=== PATIENT | female | born 1960 | race Caucasian/White ===

== ENCOUNTER 2021-02-15 13:31 | Inpatient (IN) | payer MEDICAID ==
[~2021-02-15] VITALS: Ht 157.5 cm; Wt 54.9 kg
[2021-02-17] MEDS ORDERED: LEXAPRO20 MG PO (11:23)
[2021-02-17] MEDS ORDERED: NORVASC5 MG PO (11:23)
[2021-02-17] MEDS ORDERED: PEPCID40 MG PO (11:24)
[2021-02-17] MEDS ORDERED: KLOR-CON 1010 MEQ PO (11:24)
[2021-02-17] MEDS ORDERED: ONDANSETRON ODT8 MG PO (11:25)
[2021-02-18] VITALS (9 sets, daily range): BP systolic 105–172; BP diastolic 53–84; BMI 19.6; BMI 21.8
[2021-02-18 08:23] LABS: ANION GAP 11.4 mmol/L (8-16); CALCIUM 9.6 mg/dL (8.5-10.1); CARBON DIOXIDE 24.7 mmol/L (21.0-32.0); POTASSIUM - SERUM 4.1 mmol/L (3.5-5.1)
[2021-02-18 08:32] LABS: APTT 25.7 SECONDS (22.8-39.4); INR 1.08 (0.85-1.17)
[2021-02-18 08:35] LABS: BASOPHILS 0.4 % (0-2); EOSINOPHILS 5.3 % (0-7); HEMATOCRIT 31.2 % (36.0-48.0); HEMOGLOBIN 10.5 g/dL (12-16); IMMATURE GRANULOCYTES 0.1 % (0-5); LYMPHOCYTE ABS# 0.51 10x3/uL (1.18-3.74); LYMPHOCYTES 6.3 % (15-50); MCH 31.8 pg (26.0-34.0); MCHC 33.7 g/dL (31.0-37.0); MCV 94.5 fL (80.0-100.0); MEAN PLATELET VOLUME 8.1 fL (7.4-10.4); MONOCYTES 8.7 % (2-11); NEUTROPHIL ABS# 6.47 10x3/uL (1.56-6.13); NEUTROPHILS 79.2 % (40-80); PLATELET COUNT 498 10x3/uL (130-400); RDW 16.2 % (11.5-14.5); WBC 8.2 10x3/uL (4.8-10.8)
--- NOTE | 2021-02-18 17:31 | NUR ---
KUB TAKEN FOR INCORRECT NEEDLE COUNT. XRAY CLEARED BY DR. HACKETT @ 1920. NOTED, CANDACE NICHOLSON
[2021-02-18 20:14] LABS: BASOPHILS 0.1 % (0-2); EOSINOPHILS 0.1 % (0-7); HEMATOCRIT 27.4 % (36.0-48.0); HEMOGLOBIN 8.9 g/dL (12-16); IMMATURE GRANULOCYTES 0.2 % (0-5); LYMPHOCYTE ABS# 0.48 10x3/uL (1.18-3.74); LYMPHOCYTES 3.9 % (15-50); MCH 31.3 pg (26.0-34.0); MCHC 32.5 g/dL (31.0-37.0); MCV 96.5 fL (80.0-100.0); MEAN PLATELET VOLUME 8.3 fL (7.4-10.4); MONOCYTES 2.4 % (2-11); NEUTROPHIL ABS# 11.64 10x3/uL (1.56-6.13); NEUTROPHILS 93.3 % (40-80); PLATELET COUNT 408 10x3/uL (130-400); RBC 2.84 10x6/uL (4.00-5.40); WBC 12.5 10x3/uL (4.8-10.8)
--- NOTE | 2021-02-18 21:30 | NUR ---
REC'D PATIENT FROM PACU VIA BED, SOMNOLENT, AROUSES WITH VOICES. ICU MONITOR ATTACHED. VSS. RECTAL IN INCISION SMALL AMOUNT DRAINAGE NOTED. 4X4 AND ABD PAD APPLIED AND TAPED WTIH MEDAPORE TAPE. LEFT ABD COLOSTOMY INACT WTIH SCANT RED DRAINAGE NOTED. WILL CONT TO MONITOR.
--- NOTE | 2021-02-18 22:15 | NUR ---
STARTED 1 UNIT OF FFP TRANSFUSION, NO S/S NOTED. VSS.CONT TO MONITOR.
--- NOTE | 2021-02-18 22:35 | NUR ---
1 UNITS OF PLATELATES STARTED TRANSFUSING. NO S/S NOTED OR COMPLAINS. VSS. CONT TO MONITOR.
--- NOTE | 2021-02-18 23:15 | NUR ---
1ST UNIT OF PRBCS TRANSFUSING WITHOUT ANY DISTRESS OR COMPLAINTS. NO S/S NOTED AT THIS TIME. VSS. CONT TO MONITOR.
[2021-02-19] VITALS (30 sets, daily range): BP systolic 101–169; BP diastolic 57–98; Ht 157.5 cm; Wt 54.9 kg
--- NOTE | 2021-02-19 01:17 | NUR ---
2ND UNITS OF PRBCS TRANSFUSING WITHOUT DISTRESS OR S/S. VSS. CONT TO MONITOR. PT RESTING QUIETLY, NO NEEDS VOICES AT THIS TIME.
[2021-02-19 04:54] LABS: BASOPHILS 0.1 % (0-2); EOSINOPHILS 0.1 % (0-7); HEMATOCRIT 30.4 % (36.0-48.0); HEMOGLOBIN 9.9 g/dL (12-16); IMMATURE GRANULOCYTES 0.1 % (0-5); LYMPHOCYTE ABS# 0.32 10x3/uL (1.18-3.74); LYMPHOCYTES 3.8 % (15-50); MCH 29.5 pg (26.0-34.0); MCHC 32.6 g/dL (31.0-37.0); MEAN PLATELET VOLUME 8.4 fL (7.4-10.4); MONOCYTES 3.3 % (2-11); NEUTROPHIL ABS# 7.86 10x3/uL (1.56-6.13); NEUTROPHILS 92.6 % (40-80); RBC 3.36 10x6/uL (4.00-5.40); RDW 19.3 % (11.5-14.5)
[2021-02-19 05:03] LABS: MCV 90.5 fL (80.0-100.0); PLATELET COUNT 326 10x3/uL (130-400); WBC 8.5 10x3/uL (4.8-10.8)
[2021-02-19 05:19] LABS: ALBUMIN 2.4 g/dL (3.4-5.0); ALKALINE PHOSPHATASE 32 U/L (30-120); ALT (SGPT) 19 U/L (10-68); BILIRUBIN - TOTAL 0.34 mg/dL (0.2-1.3); CALC OSMOLALITY 268 mosm/kg (275-300); CALCIUM 7.9 mg/dL (8.5-10.1); CARBON DIOXIDE 22.3 mmol/L (21.0-32.0); CHLORIDE - SERUM 103 mmol/L (98-107); CREATININE - SERUM 0.8 mg/dL (0.6-1.3); GLUCOSE 108 mg/dL (74-106); MAGNESIUM - SERUM 1.2 mg/dL (1.8-2.4); PHOSPHOROUS 4.3 mg/dL (2.5-4.9); POTASSIUM - SERUM 4.3 mmol/L (3.5-5.1); PROTEIN - SERUM 5.3 g/dL (6.4-8.2); SODIUM 135 mmol/L (136-145); TROPONIN-I < 0.017 ng/mL (0.000-0.060); eGFR NON AFRICAN AMERICAN 77 mL/min (90-120)
[2021-02-19 05:24] LABS: UREA NITROGEN 8 mg/dL (7-18)
--- NOTE | 2021-02-19 07:08 | NUR ---
PT garage attendant WITH NO MAX DOSE SETTINGS. CURRENT ORDER IS: DILAUDID 0.2MG WITH 10 MIN LOCKOUT. PT RECIEVED ROMAZICON AND NARCAN IN POST OP PRIOR TO ARRIVING IN ICU. MD. HACKETT PAGED TO CLARIFY ODERS AND OBTIAN MAX DOSE SETTINGS @ 0712. PT VSS, [id number], WILL CONTINUE TO MONITOR.
--- NOTE | 2021-02-19 07:38 | NUR ---
MAG 1.2 @ 0400 LAB DRAW. MAG REPLACMENT STARTED @0730 PER ELECTROLYTE PROTOCOL. WILL CONTINUE TO MONITOR.
--- NOTE | 2021-02-19 18:21 | NUR ---
CONCERN FOR ABILITY TO OVERDOSE ON AGRICULTURAL LENDER DUE TO NO MAX LOCKOUT ORDER. WILL REVIEW AGRICULTURAL LENDER ORDERS WITH ONCOMING RN.
--- NOTE | 2021-02-19 20:15 | NUR ---
REC'D PT AWALE. ALERT DESPITE DILAUDID, INITIAL ASSESSMENT PER FLOW SHEET.
--- NOTE | 2021-02-19 22:30 | NUR ---
THREW HERSELF OVER TO SIDE OF BED SAYING SHE IS GOING TO BE SICK, PASSED QUICKLY. LYING QUIETLY, SAYING MUCH BETTER.
[2021-02-20] VITALS (20 sets, daily range): BP systolic 135–173; BP diastolic 75–108
--- NOTE | 2021-02-20 02:00 | NUR ---
FRANTIC ABOUT NEEDING 'BLADDER RELIEF' SHOWED HER THAT MATTHEWS TUBE WAS DRAINING WITHOUT PROBLEM. VERBALIZED UNDERSTANING
[2021-02-20 04:28] LABS: BASOPHILS 0.1 % (0-2); EOSINOPHILS 0.1 % (0-7); HEMATOCRIT 35.7 % (36.0-48.0); IMMATURE GRANULOCYTES 0.2 % (0-5); LYMPHOCYTE ABS# 0.25 10x3/uL (1.18-3.74); LYMPHOCYTES 1.5 % (15-50); MCH 29.8 pg (26.0-34.0); MCHC 33.6 g/dL (31.0-37.0); MCV 88.6 fL (80.0-100.0); MEAN PLATELET VOLUME 8.4 fL (7.4-10.4); MONOCYTES 2.2 % (2-11); NEUTROPHILS 95.9 % (40-80); PLATELET COUNT 358 10x3/uL (130-400); RBC 4.03 10x6/uL (4.00-5.40); RDW 19.4 % (11.5-14.5)
[2021-02-20 04:29] LABS: WBC 16.3 10x3/uL (4.8-10.8)
[2021-02-20 04:38] LABS: INR 1.41 (0.85-1.17)
[2021-02-20 04:55] LABS: ALBUMIN 2.3 g/dL (3.4-5.0); ALKALINE PHOSPHATASE 52 U/L (30-120); ALT (SGPT) 16 U/L (10-68); BILIRUBIN - TOTAL 0.38 mg/dL (0.2-1.3); CALC OSMOLALITY 257 mosm/kg (275-300); CALCIUM 8.2 mg/dL (8.5-10.1); CARBON DIOXIDE 22.4 mmol/L (21.0-32.0); CHLORIDE - SERUM 99 mmol/L (98-107); CREATININE - SERUM 0.7 mg/dL (0.6-1.3); GLUCOSE 108 mg/dL (74-106); POTASSIUM - SERUM 3.7 mmol/L (3.5-5.1); PROTEIN - SERUM 5.8 g/dL (6.4-8.2); SODIUM 129 mmol/L (136-145); UREA NITROGEN 7 mg/dL (7-18); eGFR NON AFRICAN AMERICAN 90 mL/min (90-120)
--- NOTE | 2021-02-20 10:14 | NUR ---
SISTER KRISTIN HERE EMOTIONAL SUPPORT TO FAMILY AND PATIENT. REVIEWED ANIMATION PRODUCER USE FOR PAIN CONTROL. TURNING COUGHIN INCENTIVE. WHY SHE CAN NOT HAVE WATER. IV PATENT, MATTHEWS CATH PATENT. SCD ON LOWER LEGS. ALL DRESSING DRY AND INTACT. PATIENT PLAYING GAMES ON PHONE TO REFOCUS HERSELF. MUCH CALMER. TURNS SELF FROM SIDE ON REQUEST.
--- NOTE | 2021-02-20 12:59 | NUR ---
DR. MATTHEWS HERE. SIPS OF WATER GIVEN, ORDERS RECEIVED TO START DIET ADVANCE TOLERATED. UP IN CHAIR AT BEDSIDE. CUSHION IN CHAIR. SERSOSANG DRAINAGE ON RECTAL DRESSING, REINFORCED. GOOD GAIT NOTED. AMBULATED WELL. TOLERATED WELL. USING SAMMYING MACHINE OPERATOR PUMP WELL MATTHEWS CATH PATENT. IV PATENT. NO DISTRESS. SPLINTING WITH PILLOW INSTRUCTION GIVEN
--- NOTE | 2021-02-20 13:47 | NUR ---
RETURNED TO BED PER PATIENT REQUEST. SMALL AMOUNT SERSANG DRAINAGE FROM RECTAL DRESSING. GOOD GAIT. AMBULATED WELL. TOLERATED WELL. NO DISTRESS. REPOSITIONED SELF IN BED. PATIENT ABLE TO USE ADJUNCT PROFESSOR.
--- NOTE | 2021-02-20 14:54 | NUR ---
FOUND PATIENT STANDING AT BEDSIDE ALL MONITORS REMOVED, IV PULLING. REMINDED TO CALL NURSE WHEN SHE GETS UP. PATIENT BECAME VERY AGITATED. DOES WANT ANYONE IN HER ROOM. STATES "I'LL BE HERE FOREVER" BED ALARMS ON. PATIENT PLACED BACK ON MONITOR.
--- NOTE | 2021-02-20 16:27 | NUR ---
RECTAL DRESSING CHANGED. KERLIX LOOSELY APPLIED COVERED WITH ABD PAD SECURE WITH TAPE. PATIENT TOLERATED WELL. PATIENT TURNING SELF FROM SIDE TO SIDE. REORIENTED TO PLACE AND SITUATION.THINKS SHE IS AT THE [facility] IN [place]. PATIENT IS TIRED OF THIS "SH" I'LL DO WHAT EVER YOU WANT.
--- NOTE | 2021-02-20 18:39 | NUR ---
DR. MATTHEWS WALKED THROUGH ORDERS RECEIVED TO RESTART HOME MEDS. PATIENT CALM RIGHT NOW WATCHING TV.
--- NOTE | 2021-02-20 20:00 | NUR ---
REC'D AWAKE, ALERT IN BED, REQUESTING TO USE BEDPAN. IS PLEASANT SO FAR THIS EVENING FOR INITIAL ASSESSMENT. REHOOKED ALL MONITORING WIRES THAT HAD COME OFF. DRSG TO RECTAL INCISION BECAME WET WITH URINE, NEW DSG APPLIED. STERI STRIPS IN PLACE TO LOWER ABD INC, DSGG JUST ABOVE C/D/I AND LEFT SIDE COLOSTOMY WITH <30 CC BLOODY DRAINAGE. NO EDEMA NOTED. PPP. DENIES NEEDS AT PRESENT.
--- NOTE | 2021-02-20 23:30 | NUR ---
HAD GOTTEN OUT OF BED, SAYING THAT SOMEONE BETTER GET HER OUT OF THIS PLACE NOW, SHE WAS "BEING HELD PRISONER AND WANT KRISTIN TO GET ME OUT OF HERE". GOT HER PHONE FOR HER AND LET HER CALL, KRISTIN UNAVAILABLE WHICH ONLY MADE HER ANGRIER. DIVERTED HER TO ANOTHER TOPIC AND BECAME MORE COMPLACENT. ASSISTED TO BSC TO VOID THEN BACK INTO BED. RECONNECTED TO MONITORING DEVICES.
[2021-02-21] VITALS (8 sets, daily range): BP systolic 153–177; BP diastolic 82–90
--- NOTE | 2021-02-21 02:30 | NUR ---
DOZING FOR THE MOST PART BUT EASILY AROUSES WITH VERBAL STIMULI. HAS NOT BEEN VERBAL FOR THE PAST FEW HOURS, STILL DISHEARTENED BY HER PROGRESS. CONT TO MONITOR.
--- NOTE | 2021-02-21 05:34 | NUR ---
HAS BEEN UP TO BSC A FEW TIMES THROUGHOUT NIGHT VOIDING READILY. COMBING OUT HER HAIR NOW AND WILL GIVE AM BATH. I&OS COMPLETE.
[2021-02-21 07:43] LABS: BASOPHILS 0.1 % (0-2); EOSINOPHILS 0.4 % (0-7); HEMATOCRIT 31.8 % (36.0-48.0); HEMOGLOBIN 10.8 g/dL (12-16); IMMATURE GRANULOCYTES 0.3 % (0-5); LYMPHOCYTE ABS# 0.35 10x3/uL (1.18-3.74); LYMPHOCYTES 2.3 % (15-50); MCH 29.8 pg (26.0-34.0); MCV 87.8 fL (80.0-100.0); MEAN PLATELET VOLUME 8.6 fL (7.4-10.4); NEUTROPHIL ABS# 14.06 10x3/uL (1.56-6.13); NEUTROPHILS 93.9 % (40-80); RBC 3.62 10x6/uL (4.00-5.40); RDW 18.7 % (11.5-14.5)
[2021-02-21 07:52] LABS: PLATELET COUNT 279 10x3/uL (130-400)
--- NOTE | 2021-02-21 08:00 | NUR ---
UP IN CHAIR FOR BREAKFAST, CUSHION IN CHAIR. PAINFUL TO MOVE, REMINDED OF CLINICAL DIRECTOR. ATE HALF OF PUDDING, HALF OF JELLO, MOST OF ORANGE JUICE. SIPPING ON WATER. ON BSC, HAS DIFFICULTY GETTING STARTED TO URINATE.
[2021-02-21 08:30] LABS: ALBUMIN 2.3 g/dL (3.4-5.0); ALKALINE PHOSPHATASE 61 U/L (30-120); ALT (SGPT) 16 U/L (10-68); CALCIUM 8.1 mg/dL (8.5-10.1); CHLORIDE - SERUM 99 mmol/L (98-107); CREATININE - SERUM 0.6 mg/dL (0.6-1.3); GLUCOSE 81 mg/dL (74-106); PROTEIN - SERUM 5.3 g/dL (6.4-8.2); SODIUM 132 mmol/L (136-145); eGFR NON AFRICAN AMERICAN > 90 mL/min (90-120)
[2021-02-21 08:31] LABS: CALC OSMOLALITY 260 mosm/kg (275-300); CARBON DIOXIDE 14.8 mmol/L (21.0-32.0); UREA NITROGEN 5 mg/dL (7-18)
--- NOTE | 2021-02-21 14:23 | NUR ---
REPORT CALLED TO SABINO Hamlin. PATIENT TRANSFERED PER BED TO ROOM 3621. PATIENT AMBULATED IN ROOM INDEPENDENTLY WITH GOOD GAIT. PAIN WHEN TRANSFERING
--- NOTE | 2021-02-21 14:31 | NUR ---
arrives to unit per bed, sl to l hand, colostomy to l side of abd, lg dressing to coccyx, transfered to toilet to urinate, no distress noted, cont to monitor
--- NOTE | 2021-02-21 14:53 | NUR ---
PATIENT SISTER KRISTIN CALLED [phone] AND NOTIFIED OF PATIENT TRANSFER. ROOM NUMBER PROVIDED
--- NOTE | 2021-02-21 18:22 | NUR ---
DRESSING CHANGED TO PT COCCYX, PT TEARFUL AND STATES THAT IT IS DRAINING, STATES THEY HAVE ONLY CHANGED IT ONCE I THINK IT NEEDS SOME ATTENTION, MEDICATED WITH DILAUDID AND ZOFRAN
--- NOTE | 2021-02-21 20:00 | NUR ---
AWAKE,WATCHING TV QUEITLY WITH NO COMPALITNS VOICED. RESP UNALBORED. SL TO LFA WITHOUT REDNESS OR EDEMA NOTED. CL IN REACH
--- NOTE | 2021-02-22 04:55 | NUR ---
I have reviewed this patient and I concur with the Shift Assessment completed by the Licensed Practical Nurse today this shift.
--- NOTE | 2021-02-22 07:15 | NUR ---
REC'D LAYING IN BED AWAKE AND ALERT. RESP EVEN AND UNLABORED WITH NO DISTRESS NOTED. CAN EXPRESS NEEDS AND WANTS. NO C/O NOTED OR VOICED AT THIS TIME. UP AB CHUCK. REFUSED SCD AND WAS EDUCATED ON THE RISK PT VOICE UNDERSTANDING. ASSESSMENT COMPLETED. C/L IN REACH AT BEDSIDE.
[2021-02-22 07:24] LABS: CALC OSMOLALITY 256 mosm/kg (275-300); CALCIUM 8.9 mg/dL (8.5-10.1); CARBON DIOXIDE 16.5 mmol/L (21.0-32.0); CHLORIDE - SERUM 96 mmol/L (98-107); CREATININE - SERUM 0.6 mg/dL (0.6-1.3); GLUCOSE 78 mg/dL (74-106); MAGNESIUM - SERUM 1.5 mg/dL (1.8-2.4); POTASSIUM - SERUM 3.2 mmol/L (3.5-5.1); SODIUM 130 mmol/L (136-145); UREA NITROGEN 5 mg/dL (7-18); eGFR NON AFRICAN AMERICAN > 90 mL/min (90-120)
[2021-02-22 08:13] VITALS: BP 161/71
--- NOTE | 2021-02-22 08:54 | NUR ---
LYING IN BED,WITHOUT DISTRESS.DOOR OPEN TO MONITOR
[2021-02-22] MEDS ORDERED: HYDROCODON-ACE1 EA10 PO (12:23)
[2021-02-22] MEDS ORDERED: LEVOFLOXACIN500 MG PO (12:32)
--- NOTE | 2021-02-22 15:11 | MORECARE ---
CASE MANAGEMENT DISCHARGE SUMMARY PATIENT: RAMO JACKSON UNIT: [id number] ADM DATE: 02/18/21 AGE: 61 : 58 SEX: F ROOM/BED: D.2207 AUTHOR: STEPHANE,DOC PHYSICIAN: REFERRING PHYSICIAN: IRENE HACKETT MD DATE OF SERVICE: 02/22/21 Case Management Discharge Planning Summary DCP REVIEW SUMMARY ANTICIPATED D/C DATE: EXPECTED LOS : CASE STATUS: DCP Initiated INITIAL REVIEW: 02/18/2021 INITIAL REVIEWER: Ingrid Shaver FINAL DISCHARGE DISPOSITION: 06 : Discharged/Trans to Home Under Care of Organized Home Health Service in Anticipation of Skilled Care FINAL REVIEWER: FINAL REVIEW DATE: DCP Focus Questions & Answers DCP Screen QUESTION: ANSWER High Risk Factors: : Hosp related to CHF, COPD, DM, End Stage Ds, CVA, CA DCP Evaluation QUESTION: ANSWER Patient's ability to cope with chronic illness : d. No chronic illness Would patient like to participate in any Care Coordination programs (if applicable): : Not applicable Mental health screen: : No mental health history DCP Re-evaluation QUESTION: ANSWER Would patient like to participate in any Care Coordination programs (if applicable): : Not applicable PATIENT: RAMO JACKSON ENCOUNTER: [id number] MEDICAL RECORD#: [id number] ADMISSION DATE: 02/18/2021 DISCHARGE DATE: ATTENDING MD: IRENE ALLEN : AGE: 61 MARITAL STATUS: S DC PLAN ID: [id number] FACILITY: [facility] PRINTED ON: 02/22/21 15:11 CT All edits/amendments must be made on the electronic document DICTATION DATE: 02/22/211510 BRIM PRESSER: DM 02/22/211510 RPT#: [id number] DC DATE: STATUS: ADM IN [facility] [address] [place] [address] END OF REPORT
--- NOTE | 2021-02-22 15:26 | MORECARE ---
CASE MANAGEMENT DISCHARGE SUMMARY PATIENT: RAMO JACKSON UNIT: [id number] ADM DATE: 02/18/21 AGE: 61 : 58 SEX: F ROOM/BED: D.2207 AUTHOR: STEPHANE,DOC PHYSICIAN: REFERRING PHYSICIAN: IRENE HACKETT MD DATE OF SERVICE: 02/22/21 Case Management Discharge Planning Summary COMMENTS ENTERED DATE: 02/22/21 15:15 CT COMMENT TYPE: Discharge Planning REVIEWER: Ingrid Shaver CM met with patient to complete initial dc planning assessment. CM educated patient on the CM role and verbal consent given by patient to complete assessment. Patient lives at home with her niece where she was independent with her care. At discharge patient plans to return home and feels this is a safe discharge. Her sister, Sanam is a great support for her and will be her medical driver home. She has a new colostomy and will need ostomy supplies and home health when she is discharged. CM discussed availability of home health, rehab services, and medical equipment. KIRSTY for any home health in her area. I called and spoke with Megan with [facility] ([phone]) She stated that they would accept the patient and will set up her supplies for her ostomy and continue with education. The patient's nurse Patricia will be giving her extra supplies for the patient to take home till her home supplies can be set up and delivered. I have faxed clinicals to [facility] . Patient will be discharging home today. Patient denied known discharge needs at this time. CM will continue to follow and will assist as needed with dc plans/needs. DCP REVIEW SUMMARY ANTICIPATED D/C DATE: EXPECTED LOS : CASE STATUS: DCP Initiated INITIAL REVIEW: 02/18/2021 INITIAL REVIEWER: Ingrid Shaver FINAL DISCHARGE DISPOSITION: 06 : Discharged/Trans to Home Under Care of Organized Home Health Service in Anticipation of Skilled Care FINAL REVIEWER: FINAL REVIEW DATE: DCP Focus Questions & Answers DCP Screen QUESTION: ANSWER High Risk Factors: : Hosp related to CHF, COPD, DM, End Stage Ds, CVA, CA DCP Evaluation QUESTION: ANSWER Patient's ability to cope with chronic illness : a. Adequate (0-3 ED visits in 6 mos., adequate financial resources, attends scheduled appts.) Patient and/or caregiver agree upon recommended discharge plan? : Yes Family / Caregiver's ability to cope with chronic illness: : a. Adequate (ability to meet patient's medical needs, ensures patient attends medical appts.) Patient's current cognitive status: : *Oriented to person, place, situation, time and present Patient gives permission to discuss discharge plans with: (name, relationship and number) : SISTER SANAM Does the patient have the ability to pay for or attain post discharge needs / services? : Yes Functional screen assessment: : Other Family / Caregiver's ability to cope with chronic illness: : a. Adequate (ability to meet patient's medical needs, ensures patient attends medical appts.) Physical Status: : Independent with ADL's Equipment needed for post hospitalization: : Ostomy Supplies Is there a likelihood that the patient will require additional services to return to the preadmission environment? : Yes Functional screen comments: : NEW OSTOMY Living Arrangements: : Home with Extended Family Other Equipment comments: : OSTOMY SUPPLIES Results of this evaluation have been discussed with: : Patient Results of this evaluation have been discussed with: : Family Patient with capacity for self-care or can be cared for in same environment as prior to hospitalization? : Yes Living arrangements comments: : LIVES WITH NIECE, HAS GOOD SUPPORT SYSTEM WITH SISTER SANAM Baseline cognitive status: : *Oriented to person, place, situation, time and present Comments: : SANAM Medication Management: : Patient states can afford medications Planned post hospital services available for patient? : Yes Pharmacy name(s): : [facility] [address] IN [place] Planned post hospital services covered by insurance plan? : Yes Does Patient have transportation to get home and to follow-up medical appointments when discharged from the hospital? : Yes Would patient like to participate in any Care Coordination programs (if applicable): : Not applicable Comments: : SANAM PINEDA Does the patient have electricity at home? : Yes Does the patient have running water in their house? : Yes Equipment in use: : Ostomy Supplies Other Equipment comments: : WILL BE ORDERED THROUGH [facility] Mental health screen: : No mental health history Abuse/Neglect: : None Resources / Services in place: : Home health Contact information for resources in use: : WILL SET UP WITH [facility] DCP Re-evaluation QUESTION: ANSWER Would patient like to participate in any Care Coordination programs (if applicable): : Not applicable PATIENT: RAMO JACKSON ENCOUNTER: [id number] MEDICAL RECORD#: [id number] ADMISSION DATE: 02/18/2021 DISCHARGE DATE: ATTENDING MD: IRENE ALLEN : AGE: 61 MARITAL STATUS: S DC PLAN ID: [id number] FACILITY: [facility] PRINTED ON: 02/22/21 15:26 CT All edits/amendments must be made on the electronic document DICTATION DATE: 02/22/21 152 WATCH INSPECTOR FINAL MOVEMENT: BRET 02/22/21 1526 RPT#: [id number] DC DATE: STATUS: ADM IN [facility] [address] [place] [address] END OF REPORT
--- NOTE | 2021-02-22 15:39 | NUR ---
DC HOME AT THIS TIME WITH ALL PERSONAL BELONGING. VOICES UNDERSTANDING OF DC INSTRUCTION. COLOSTOMY TEACHING GIVEN ALONG WITH RETURN DEMONSTRATION. NO C/O MOTED UPON DEPARTURE. STABLE CONDITION.
--- NOTE | 2021-02-22 15:52 | MORECARE ---
CASE MANAGEMENT DISCHARGE SUMMARY PATIENT: RAMO JACKSON UNIT: [id number] ADM DATE: 02/18/21 AGE: 61 : 58 SEX: F ROOM/BED: D.2207 AUTHOR: STEPHANE,DOC PHYSICIAN: REFERRING PHYSICIAN: IRENE HACKETT MD DATE OF SERVICE: 02/22/21 Case Management Discharge Planning Summary COMMENTS ENTERED DATE: 02/22/21 15:15 CT COMMENT TYPE: Discharge Planning REVIEWER: Ingrid Shaver CM met with patient to complete initial dc planning assessment. CM educated patient on the CM role and verbal consent given by patient to complete assessment. Patient lives at home with her niece where she was independent with her care. At discharge patient plans to return home and feels this is a safe discharge. Her sister, Sanam is a great support for her and will be her motor vehicle escort driver home. She has a new colostomy and will need ostomy supplies and home health when she is discharged. CM discussed availability of home health, rehab services, and medical equipment. KIRSTY for any home health in her area. I called and spoke with Megan with [facility] ([phone]) She stated that they would accept the patient and will set up her supplies for her ostomy and continue with education. The patient's nurse Patricia will be giving her extra supplies for the patient to take home till her home supplies can be set up and delivered. I have faxed clinicals to [facility] . Patient will be discharging home today. Patient denied known discharge needs at this time. CM will continue to follow and will assist as needed with dc plans/needs. DCP REVIEW SUMMARY ANTICIPATED D/C DATE: EXPECTED LOS : CASE STATUS: DCP Initiated INITIAL REVIEW: 02/18/2021 INITIAL REVIEWER: Ingrid Shaver FINAL DISCHARGE DISPOSITION: 06 : Discharged/Trans to Home Under Care of Organized Home Health Service in Anticipation of Skilled Care FINAL REVIEWER: FINAL REVIEW DATE: DCP Focus Questions & Answers DCP Screen QUESTION: ANSWER High Risk Factors: : Hosp related to CHF, COPD, DM, End Stage Ds, CVA, CA DCP Evaluation QUESTION: ANSWER Patient's ability to cope with chronic illness : a. Adequate (0-3 ED visits in 6 mos., adequate financial resources, attends scheduled appts.) Patient and/or caregiver agree upon recommended discharge plan? : Yes Family / Caregiver's ability to cope with chronic illness: : a. Adequate (ability to meet patient's medical needs, ensures patient attends medical appts.) Patient's current cognitive status: : *Oriented to person, place, situation, time and present Patient gives permission to discuss discharge plans with: (name, relationship and number) : SISTER SANAM Does the patient have the ability to pay for or attain post discharge needs / services? : Yes Functional screen assessment: : Other Family / Caregiver's ability to cope with chronic illness: : a. Adequate (ability to meet patient's medical needs, ensures patient attends medical appts.) Physical Status: : Independent with ADL's Equipment needed for post hospitalization: : Ostomy Supplies Is there a likelihood that the patient will require additional services to return to the preadmission environment? : Yes Functional screen comments: : NEW OSTOMY Living Arrangements: : Home with Extended Family Other Equipment comments: : OSTOMY SUPPLIES Results of this evaluation have been discussed with: : Patient Results of this evaluation have been discussed with: : Family Patient with capacity for self-care or can be cared for in same environment as prior to hospitalization? : Yes Living arrangements comments: : LIVES WITH NIECE, HAS GOOD SUPPORT SYSTEM WITH SISTER SANAM Baseline cognitive status: : *Oriented to person, place, situation, time and present Comments: : SANAM Medication Management: : Patient states can afford medications Planned post hospital services available for patient? : Yes Pharmacy name(s): : [facility] [address] Planned post hospital services covered by insurance plan? : Yes Does Patient have transportation to get home and to follow-up medical appointments when discharged from the hospital? : Yes Would patient like to participate in any Care Coordination programs (if applicable): : Not applicable Comments: : SANAM PINEDA Does the patient have electricity at home? : Yes Does the patient have running water in their house? : Yes Equipment in use: : Ostomy Supplies Other Equipment comments: : WILL BE ORDERED THROUGH [facility] Mental health screen: : No mental health history Abuse/Neglect: : None Resources / Services in place: : Home health Contact information for resources in use: : WILL SET UP WITH [facility] DCP Re-evaluation QUESTION: ANSWER Would patient like to participate in any Care Coordination programs (if applicable): : Not applicable PATIENT: RAMO JACKSON ENCOUNTER: [id number] MEDICAL RECORD#: [id number] ADMISSION DATE: 02/18/2021 DISCHARGE DATE: 02/22/2021 ATTENDING MD: IRENE ALLEN : AGE: 61 MARITAL STATUS: S DC PLAN ID: [id number] FACILITY: [facility] PRINTED ON: 02/22/21 15:52 CT All edits/amendments must be made on the electronic document DICTATION DATE: 02/22/211551 FILTER PRESS SUPERVISOR: BRET 02/22/211551 RPT#: [id number] DC DATE:02/22/21 STATUS: DIS IN [facility] [address] [place] [address] END OF REPORT
--- NOTE | 2021-02-23 14:38 | HP ---
PATIENT: RAMO JACKSON MEDICAL RECORD: [id number] ACCOUNT: [id number] LOCATION:D.MS Ledezma[facility] : 58 ADMISSION DATE: 02/18/21 PCP: AMELIE ASCENCIO HISTORY AND PHYSICAL EXAMINATION CHIEF COMPLAINT: Rectal cancer. HISTORY OF PRESENT ILLNESS: The patient has undergone neoadjuvant chemotherapy and radiation. 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 The risks, possible complication, and alternatives of the procedure were explained to the patient. She elects to proceed. ALLERGIES: JOHN inhibitors. HOME MEDICATIONS: Amlodipine, levothyroxine. The rest of the medicines have been reviewed. PAST MEDICAL AND SURGICAL HISTORY: Rectal cancer, hypothyroidism, anxiety, depressive disorder, hypertension, gastroesophageal reflux. SOCIAL HISTORY: Former smoker. PHYSICAL EXAMINATION: GENERAL: The patient does not appear acutely ill. She does not appear chronically ill. VITAL SIGNS: Reviewed. The entire physical examination was performed in the presence of a female nurse. RECTAL: Anal examination reveals a malignancy at the anorectal junction that does not involve the anal sphincters and is fixed. ASSESSMENT AND PLAN: Anorectal cancer. Procedure will be abdominoperineal resection. TRANSINT:[id number] Voice Confirmation ID: [id number] DOCUMENT ID: [id number] cc: Dr. Nils Parry Dr. Jose Jackson IRENE HACKETT MD at 1438 CC: DR. JOSE JACKSON and DR. NILS PARRY [phone] DICTATION DATE: 02/18/21 1331 EDGE SANDER: 02/18/21 1459 DIS IN 02/22/21 [id number] [place] [address]
--- NOTE | 2021-02-25 13:13 | OP ---
PATIENT NAME: RAMO JACKSON MEDICAL RECORD: [id number] :58 LOCATION:[facility] ADMISSION DATE:02/18/21 SURGEON: IRENE HACKETT MD DATE OF OPERATION: 02/18/2021 PREOPERATIVE DIAGNOSIS: Low rectal cancer. POSTOPERATIVE DIAGNOSES: Low rectal cancer with retrocecal appendix. PROCEDURES: 1. Abdominoperineal resection. 2. Incidental appendectomy. SURGEON: Irene Hackett MD HEAT SEAL OPERATOR: None. BLOOD LOSS: Please see the anesthesia sheet. COMPLICATIONS: None. The patient has an ulcerated area that is very close and may include the anal sphincters and is therefore not a candidate for a low anterior resection. She has undergone neoadjuvant chemotherapy and radiation. The indications for the appendectomy was that it was retrocecal and should the patient have appendicitis in the future it would be difficult to diagnosis. The risks, possible complications, and alternatives of the procedure were explained to the patient. She elects to proceed. The patient understands that she would no longer have an anus and that the stoma would be permanent. DESCRIPTION OF PROCEDURE: The patient was conveyed to the operating room electively on 02/18/2021. General anesthesia was induced by the anesthesia staff. The patient was placed in stirrups. The abdomen and perineum were sterilely prepped and draped. Transverse incision was accomplished 2 fingerbreadths above the pubic symphysis. Sharp dissection was carried down through skin and subcutaneous tissue as well as Jayla's fascia. I incised the anterior fascia transversely. Subfascial flaps were created in a cephalad and caudad dimension. I then identified the midline and placed 0 Vicryl sutures into the peritoneum on either side of the midline. I then incised the midline peritoneum. The Benigno retractor was placed. I incised along the distal aspect of the white line of Toldt on the left. I entered the inner sigmoid fossa. Both ureters were identified and these were encircled with umbilical tape to retract them laterally. They were retracted laterally and were protected throughout the entire operation. The lower abdominal survey was undertaken. I also palpated the liver and identified no large liver lesions. I noted that the appendix was a retrocecal appendix. This was bluntly mobilized. A window was created in the mesoappendix. I took down the mesoappendix with the Super Jaw EnSeal device. I then stapled across the cecum with a YOU-75 stapler. I chose the distal extent of my resection to be the mid-sigmoid colon. A window was created in the mesentery of the mesocolon at this site and I stapled across the colon with a YOU-75 stapler. I then incised the retroperitoneal reflection OPERATIVE REPORT [id number] RAMO JACKSON on either side of the mesorectum. I then began to dissect down on the sacral promontory and the sacrum, sealing and dividing the mesorectum with the Super Jaw EnSeal device. An anterior flap was created sharply as well. The rectal stalks were taken down laterally with the Super Jaw EnSeal device. We then elevated the patient's lower extremities. This was for the perineal portion of the operation. Kochers were placed on the anus at the 12 and 6 o'clock position. A circular incision was accomplished around the anoderm. I began to sharply dissect up along the rectum. Most of this was sharp dissection, but there with some blunt dissection as well. Posteriorly, I identified the coccyx. I sharply dissected down to the coccyx. I was then able to perform some blunt dissection and was able to dissect up into the free area in the pelvis. Sharp dissection was carried out laterally. Sharp dissection was carried out anteriorly as well. There was no injury to the posterior wall of the vagina. I was able to free up the anus and rectum completely and this was then pulled out through the peritoneal defect. I sent the specimen to pathology for margins at the anoderm. The margins were grossly free of tumor. We then irrigated in the pelvis with normal saline. There was no bleeding. I then began to close the perineal incision. Pelvic musculature was closed with multiple interrupted horizontal mattress #1 Vicryls. The subdermis was approximated with multiple interrupted horizontal mattress #1 Vicryls. The skin was approximated with multiple interrupted horizontal mattress 2-0 Vicryls. I did not insert a drain. Preoperatively, I did tell the patient that the perineal incision will drain. All of these abdominoperineal incisions drained through the perineal incision. I then changed gown and gloves. I went above and removed the umbilical tapes. The ureters looked fine. There was no injury to the bladder. A circular defect was created chcf between the umbilicus and the left anterior superior iliac spine. This circular skin defect was then carried down through the abdominal wall fat to the anterior fascia. The anterior fascia was incised longitudinally. I dissected down through the rectus muscles. This was not a muscle splitting technique, but a muscle technique. The posterior fascia was incised. I then delivered the stapled portion of the sigmoid colon. I ensured that it was not twisted on its mesentery. I then went about closing the primary skin incision. I then reperitonealized with a running 0 Vicryl. The rectus muscles were approximated in the midline with multiple interrupted horizontal mattress 0 Vicryls. The anterior fascia was approximated with running looped #1 PDS from the right and the left. The subdermis was approximated with interrupted 3-0 Vicryls. The skin was approximated with a running intracuticular 3-0 Vicryl. I then covered up this incision to protect it from any cross contamination as I matured the stoma. The staple line was excised. I then performed a Angi type of a colostomy. This was an everting colostomy. This was done initially with four 3-0 Vicryl sutures. I then completed this by suturing full-thickness colon to the surrounding subdermis with interrupted 3-0 Vicryls. Stoma appliance was then applied. The patient was then extubated and conveyed to post-anesthesia care unit where she was in stable condition. She was having some drainage from the perineal OPERATIVE REPORT [id number] RAMO JACKSON incision already. I had it irrigated pretty good bit and I felt that most of this was likely irrigation. TRANSINT:[id number] Voice Confirmation ID: [id number] DOCUMENT ID: [id number] cc: Dr. Nisl Pandya Dr. Jose Jackson IRENE HACKETT MD at 1313 CC: DR. JOSE JACKSON and DR. NILS PANDYA [id number] DICTATION DATE: 02/25/21 1040 MANAGER METROLOGY: 02/25/21 1128 DIS IN 02/22/[address] [facility] [address] [place] [address]
--- NOTE | 2021-02-25 15:39 | MORECARE ---
CASE MANAGEMENT DISCHARGE SUMMARY PATIENT: RAMO JACKSON UNIT: [id number] ADM DATE: 02/18/21 AGE: 61 : 58 SEX: F ROOM/BED: D.2207 AUTHOR: STEPHANE,DOC PHYSICIAN: REFERRING PHYSICIAN: IRENE HACKETT MD DATE OF SERVICE: 02/25/21 Case Management Discharge Planning Summary COMMENTS ENTERED DATE: 02/22/21 15:15 CT COMMENT TYPE: Discharge Planning REVIEWER: Ingrid Shaver CM met with patient to complete initial dc planning assessment. CM educated patient on the CM role and verbal consent given by patient to complete assessment. Patient lives at home with her niece where she was independent with her care. At discharge patient plans to return home and feels this is a safe discharge. Her sister, Sanam is a great support for her and will be her corrugated fastener driver home. She has a new colostomy and will need ostomy supplies and home health when she is discharged. CM discussed availability of home health, rehab services, and medical equipment. KIRSTY for any home health in her area. I called and spoke with Megan with [facility] ([phone]) She stated that they would accept the patient and will set up her supplies for her ostomy and continue with education. The patient's nurse Patricia will be giving her extra supplies for the patient to take home till her home supplies can be set up and delivered. I have faxed clinicals to [facility] . Patient will be discharging home today. Patient denied known discharge needs at this time. CM will continue to follow and will assist as needed with dc plans/needs. DCP REVIEW SUMMARY ANTICIPATED D/C DATE: EXPECTED LOS : CASE STATUS: DCP Initiated INITIAL REVIEW: 02/18/2021 INITIAL REVIEWER: Ingrid Shaver FINAL DISCHARGE DISPOSITION: 06 : Discharged/Trans to Home Under Care of Organized Home Health Service in Anticipation of Skilled Care FINAL REVIEWER: FINAL REVIEW DATE: DCP Focus Questions & Answers DCP Screen QUESTION: ANSWER High Risk Factors: : Hosp related to CHF, COPD, DM, End Stage Ds, CVA, CA DCP Evaluation QUESTION: ANSWER Patient's ability to cope with chronic illness : a. Adequate (0-3 ED visits in 6 mos., adequate financial resources, attends scheduled appts.) Patient and/or caregiver agree upon recommended discharge plan? : Yes Family / Caregiver's ability to cope with chronic illness: : a. Adequate (ability to meet patient's medical needs, ensures patient attends medical appts.) Patient's current cognitive status: : *Oriented to person, place, situation, time and present Patient gives permission to discuss discharge plans with: (name, relationship and number) : SISTER SANAM Does the patient have the ability to pay for or attain post discharge needs / services? : Yes Functional screen assessment: : Other Family / Caregiver's ability to cope with chronic illness: : a. Adequate (ability to meet patient's medical needs, ensures patient attends medical appts.) Physical Status: : Independent with ADL's Equipment needed for post hospitalization: : Ostomy Supplies Is there a likelihood that the patient will require additional services to return to the preadmission environment? : Yes Functional screen comments: : NEW OSTOMY Living Arrangements: : Home with Extended Family Other Equipment comments: : OSTOMY SUPPLIES Results of this evaluation have been discussed with: : Patient Results of this evaluation have been discussed with: : Family Patient with capacity for self-care or can be cared for in same environment as prior to hospitalization? : Yes Living arrangements comments: : LIVES WITH NIECE, HAS GOOD SUPPORT SYSTEM WITH SISTER SANAM Baseline cognitive status: : *Oriented to person, place, situation, time and present Comments: : SANAM Medication Management: : Patient states can afford medications Planned post hospital services available for patient? : Yes Pharmacy name(s): : [facility] [address] IN [facility] Planned post hospital services covered by insurance plan? : Yes Does Patient have transportation to get home and to follow-up medical appointments when discharged from the hospital? : Yes Would patient like to participate in any Care Coordination programs (if applicable): : Not applicable Comments: : SANAM PINEDA Does the patient have electricity at home? : Yes Does the patient have running water in their house? : Yes Equipment in use: : Ostomy Supplies Other Equipment comments: : WILL BE ORDERED THROUGH [facility] Mental health screen: : No mental health history Abuse/Neglect: : None Resources / Services in place: : Home health Contact information for resources in use: : WILL SET UP WITH [facility] DCP Re-evaluation QUESTION: ANSWER Would patient like to participate in any Care Coordination programs (if applicable): : Not applicable PATIENT: RAMO JACKSON ENCOUNTER: [id number] MEDICAL RECORD#: [id number] ADMISSION DATE: 02/18/2021 DISCHARGE DATE: 02/22/2021 ATTENDING MD: IRENE ALLEN : AGE: 61 MARITAL STATUS: S DC PLAN ID: [id number] FACILITY: [facility] PRINTED ON: 02/25/21 15:39 CT All edits/amendments must be made on the electronic document DICTATION DATE: 02/25/211538 PUMP MACHINE OPERATOR: BRET 02/25/21 153 RPT#: [id number] DC DATE:02/22/21 STATUS: DIS IN [facility] [address] [place] [address] END OF REPORT
--- NOTE | 2021-03-01 09:50 | MORECARE ---
CASE MANAGEMENT DISCHARGE SUMMARY PATIENT: RAMO JACKSON UNIT: [id number] ADM DATE: 02/18/21 AGE: 61 : 58 SEX: F ROOM/BED: D.2207 AUTHOR: STEPHANE,DOC PHYSICIAN: REFERRING PHYSICIAN: IRENE HACKETT MD DATE OF SERVICE: 03/01/21 Case Management Discharge Planning Summary COMMENTS ENTERED DATE: 02/22/21 15:15 CT COMMENT TYPE: Discharge Planning REVIEWER: Ingrid Shaver CM met with patient to complete initial dc planning assessment. CM educated patient on the CM role and verbal consent given by patient to complete assessment. Patient lives at home with her niece where she was independent with her care. At discharge patient plans to return home and feels this is a safe discharge. Her sister, Sanam is a great support for her and will be her shuttle truck driver home. She has a new colostomy and will need ostomy supplies and home health when she is discharged. CM discussed availability of home health, rehab services, and medical equipment. KIRSTY for any home health in her area. I called and spoke with Megan with [facility] ([phone]) She stated that they would accept the patient and will set up her supplies for her ostomy and continue with education. The patient's nurse Patricia will be giving her extra supplies for the patient to take home till her home supplies can be set up and delivered. I have faxed clinicals to [facility] . Patient will be discharging home today. Patient denied known discharge needs at this time. CM will continue to follow and will assist as needed with dc plans/needs. DCP REVIEW SUMMARY ANTICIPATED D/C DATE: EXPECTED LOS : CASE STATUS: DCP Initiated INITIAL REVIEW: 02/18/2021 INITIAL REVIEWER: Ingrid Shaver FINAL DISCHARGE DISPOSITION: 06 : Discharged/Trans to Home Under Care of Organized Home Health Service in Anticipation of Skilled Care FINAL REVIEWER: FINAL REVIEW DATE: DCP Focus Questions & Answers DCP Screen QUESTION: ANSWER High Risk Factors: : Hosp related to CHF, COPD, DM, End Stage Ds, CVA, CA DCP Evaluation QUESTION: ANSWER Patient's current cognitive status: : *Oriented to person, place, situation, time and present Patient's ability to cope with chronic illness : a. Adequate (0-3 ED visits in 6 mos., adequate financial resources, attends scheduled appts.) Patient gives permission to discuss discharge plans with: (name, relationship and number) : SISTER SANAM Patient and/or caregiver agree upon recommended discharge plan? : Yes Family / Caregiver's ability to cope with chronic illness: : a. Adequate (ability to meet patient's medical needs, ensures patient attends medical appts.) Functional screen assessment: : Other Physical Status: : Independent with ADL's Does the patient have the ability to pay for or attain post discharge needs / services? : Yes Family / Caregiver's ability to cope with chronic illness: : a. Adequate (ability to meet patient's medical needs, ensures patient attends medical appts.) Functional screen comments: : NEW OSTOMY Equipment needed for post hospitalization: : Ostomy Supplies Is there a likelihood that the patient will require additional services to return to the preadmission environment? : Yes Living Arrangements: : Home with Extended Family Baseline cognitive status: : *Oriented to person, place, situation, time and present Results of this evaluation have been discussed with: : Family Results of this evaluation have been discussed with: : Patient Patient with capacity for self-care or can be cared for in same environment as prior to hospitalization? : Yes Living arrangements comments: : LIVES WITH NIECE, HAS GOOD SUPPORT SYSTEM WITH SISTER SANAM Other Equipment comments: : OSTOMY SUPPLIES Comments: : SANAM Medication Management: : Patient states can afford medications Planned post hospital services available for patient? : Yes Pharmacy name(s): : [facility] [address] IN [facility] Does Patient have transportation to get home and to follow-up medical appointments when discharged from the hospital? : Yes Planned post hospital services covered by insurance plan? : Yes Comments: : SANAM PINEDA Would patient like to participate in any Care Coordination programs (if applicable): : Not applicable Does the patient have electricity at home? : Yes Does the patient have running water in their house? : Yes Equipment in use: : Ostomy Supplies Other Equipment comments: : WILL BE ORDERED THROUGH [facility] Mental health screen: : No mental health history Abuse/Neglect: : None Resources / Services in place: : Home health Contact information for resources in use: : WILL SET UP WITH [facility] DCP Re-evaluation QUESTION: ANSWER Would patient like to participate in any Care Coordination programs (if applicable): : Not applicable PATIENT: RAMO JACKSON ENCOUNTER: [id number] MEDICAL RECORD#: [id number] ADMISSION DATE: 02/18/2021 DISCHARGE DATE: 02/22/2021 ATTENDING MD: IRENE ALLEN : AGE: 61 MARITAL STATUS: S DC PLAN ID: [id number] FACILITY: [facility] PRINTED ON: 03/01/21 9:50 CT All edits/amendments must be made on the electronic document DICTATION DATE: 03/01/21948 FORESTRY CONSERVATION WORKER: BRET 03/01/21948 RPT#: [id number] DC DATE:02/22/21 STATUS: DIS IN [facility] [address] [place] [address] END OF REPORT
== END 2021-02-22 15:42 | disposition home health service (06) | DRG 331 ==
LOC: D.SDCHOLD 02-18 07:57 → D.ICU 02-18 20:28 → D.MS 02-21 14:25
PROVIDERS: Anesthesiology; Surgery; ADMIT Surgery; ATTEND Surgery
PROC: 0DTN0ZZ Resection of Sigmoid Colon, Open Approach (ICD-10-PCS; 2021-02-18)
PROC: 0DTQ0ZZ Resection of Anus, Open Approach (ICD-10-PCS; 2021-02-18)
PROC: 0DTJ0ZZ Resection of Appendix, Open Approach (ICD-10-PCS; 2021-02-18)
PROC: 0DTP0ZZ Resection of Rectum, Open Approach (ICD-10-PCS; principal; 2021-02-18 10:00)
DX: C20 Malignant neoplasm of rectum (principal); E03.9 Hypothyroidism, unspecified; I10 Essential (primary) hypertension; K21.9 Gastro-esophageal reflux disease without esophagitis; F32.9 Major depressive disorder, single episode, unspecified